=== PATIENT | male | born 1985 | race Caucasian/White ===

== ENCOUNTER 2018-08-05 06:54 | Emergency (ER) | payer BC, SELFPAY ==
[2018-07-21 16:07] VITALS: BMI 26.4
[2018-08-05 06:54] VITALS: BP 127/80; PULSE 66; RESP 14; TEMP 36.5; O2SAT 100; BMI 27.1
--- NOTE | 2018-08-05 07:00 | RAD_ITS ---
STUDY: X-RAY CHEST REASON FOR EXAM: Male, 33 years old. Chest pain TECHNIQUE: Single AP portable view of the chest. COMPARISON: None. FINDINGS: The lungs are clear and expanded. There is no demonstrated pleural abnormality. Normal size heart. Normal mediastinum and radu. Normal visualized pulmonary arteries. Normal visualized aortic arch and descending thoracic aorta. Normal visualized thoracic spine. Normal visualized ribs, clavicles, and shoulders. There is no demonstrated abnormality of the visualized soft tissue structures of the upper abdomen. RAD/Chest 1 View (Portable) IMPRESSION: Normal x-ray examination of the chest. Electronically Signed: Mike Osorio DO at 8:31 EDT Tel , Service support ,
--- NOTE | 2018-08-05 07:00 | EKG12_ITS ---
Test Reason : CP Blood Pressure : / mmHG Vent. Rate : 067 BPM Atrial Rate : 067 BPM P-R Int : 134 ms QRS Dur : 084 ms QT Int : 366 ms P-R-T Axes : 058 075 057 degrees QTc Int : 386 ms Normal sinus rhythm Normal ECG Confirmed by ESPINOZA SCOTT, JESE ([id number]), web editor WHIT WHIPPLE ([id number]) on 08/10/2018 1:50:59 PM Referred By: RIVERA Confirmed By:JESE DORAN MD
[2018-08-05 07:07] VITALS: O2SAT 100
[2018-08-05 07:08] LABS: Absolute Lymphocyte Count 2.69 X10^3/ul (0.83-4.51); Absolute Neutrophil Count 7.8 X10^3/uL (2.0-7.7); Basophil# 0.03 X10^3/uL; Basophil% 0.3 % (0-1); Eosinophil# 0.13 X10^3/uL; Eosinophils% 1.1 % (0-5); Hematocrit 46.1 % (40-54); Hemoglobin 16.3 g/dl (13.0-16.5); Lymphocyte # 2.69 X10^3/ul (4.0); Lymphocyte % 23.6 % (19-41); Mean Corp Hgb Conc 35.4 g/gl (32-36); Mean Corpuscular Hgb 31.3 pg (27.0-32.0); Mean Corpuscular Volume 88.7 fL (80-94); Mean Platelet Vol. 9.1 fl (6.2-12.0); Monocyte# 0.74 X10^3/uL; Monocyte% 6.5 % (0-10); Neutrophil % 68.2 % (47-70); POSITIVE COUNT NO; POSITIVE DIFFERENTIAL NO; POSITIVE MORPHOLOGY NO; Platelet Count 291 K/mm3 (150-450); RBC Distribution Width CV 12.6 % (11.6-14.6); RBC Distribution Width SD 40.3 fl (35.1-43.9); White Blood Count 11.4 K/mm3 (4.4-11.0)
[2018-08-05 07:10] LABS: Prothrombin Time (Protime)PT. 12.8 SECONDS (11.7-14.9)
--- NOTE | 2018-08-05 07:16 | ED.VISSUMM ---
- ER Visit Summary Date of Service: 08/05/18 Chief Complaint: Chest pain History of Present Illness: The patient is a 33 M recently seen by Dr. Nava for palpitations. He describes occasional hard thump of his heart. Today while driving to work he noted sharp spasms of pain to the left upper chest. He denies shortness of breath, lightheadedness, dizziness. He has not had recent change in caffeine intake. No known thyroid problems. Physical Examination: Vital signs unremarkable. Patient is in no acute distress and is nontoxic appearing. Head and neck examination is normal. Heart is regular rate and rhythm. Palpable pulses are noted throughout. Lungs are clear with good air movement throughout. Chest wall is nontender. Abdomen is soft and nontender. Bowel sounds are noted. Extremity examination is unremarkable with full range of motion. Neurologic examination reveals no focal deficits. Test Results: EKG is sinus at 67 with no acute ischemia. 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 CBC was a white count 11.4 with normal differential. Chemistry studies normal. Troponin is less than 0.015. Portable chest x-ray per my review is unremarkable. TSH and d-dimer are pending will be checked by oncoming physician. Emergency Department Course and Treatment: Patient has been observed on conveyor monitor. He had no further episodes of the sharp chest pain that brought him in. He was noted to have a few PACs on monitor. If the d-dimer and TSH are unremarkable patient will be discharged to follow-up with Dr. Nava as scheduled. Patient is comfortable with this plan. Treatment Plan: [] Disposition: Discharge Impression: Atypical chest pain This note was generated with [employer] dictation software. It may contain incorrect words, spelling, and punctuation that were not noted in review of the chart prior to signing ED Disposition - Plan for ED Patient: Referrals: Benny Nava MD [STAFF PHYSICIAN] -
[2018-08-05 07:19] LABS: Anion Gap 3 (5-15); BUN 13 mg/dL (7-18); BUN/Creat Ratio 15.8 RATIO (10-20); Chloride 107 mmol/L (98-107); Creatinine, Serum 0.82 mg/dL (0.70-1.30); EST Glomerular Filtration Rate 115 mL/min (>60); Est Glom Filt Rate - Afr Amer 139 mL/min (>60); Estimated Creatinine Clearance 125.12 ml/min; Glucose 76 mg/dL (74-106); Potassium 3.6 mmol/L (3.5-5.1); Sodium Level 140 mmol/L (136-145)
[2018-08-05 08:03] LABS: D-Dimer Quantitative (DVT/PE) < 0.27 FEU/ug/m (0.27-0.49)
[2018-08-05 08:07] VITALS: BP 112/71; PULSE 78; RESP 16; O2SAT 98
--- NOTE | 2018-08-05 08:50 | ED.DEP ---
ED Disposition - Plan for ED Patient: Instructions: ED Chest Pain Atypical Unkn Cause Referrals: Benny Nava MD [STAFF PHYSICIAN] -
[2018-08-05 09:18] VITALS: BP 120/78; PULSE 56; RESP 16; O2SAT 99
== END 2018-08-05 09:19 | disposition home or self-care (01) ==
LOC: ED 07:20
PROVIDERS: Emergency Provider Emergency Medicine
DX: R07.89 Other chest pain (principal); Z87.891 Personal history of nicotine dependence
CPT/HCPCS: 71045; 80048; 84443; 84484; 85025; 85379; 85610; 93005; 99283; A4216

== ENCOUNTER → 2018-08-12 14:29 | Outpatient (CLI) | payer BC, SELFPAY ==
[2018-07-21 16:07] VITALS: BMI 26.4
[2018-08-05 06:54] VITALS: BMI 27.1
--- NOTE | 2018-08-12 14:34 | ECHOD_ITS ---
Reason For Study: ARRHYTHMIA Procedure This was a 2D Doppler, Color Flow transthoracic echocardiogram. Exam performed in department. Left Ventricle Normal LV size. Left ventricular systolic function is normal. The estimated ejection fraction is 55 %. Normal diastology for age. No regional wall motion abnormalities noted. Right Ventricle Normal RV size. Normal systolic function. Atria Normal left atrium. Normal right atrium. Mitral Valve Normal mitral valve. Tricuspid Valve Normal tricuspid valve. Mild (1+) tricuspid valve insufficiency. Pulmonary artery systolic pressure is 30 mmHg. Aortic Valve Normal aortic valve. Trisinus/trileaflet aortic valve. Pulmonic Valve Normal pulmonic valve. Great Vessels Normal aortic root. The pulmonary artery is normal size. Normal inferior vena cava. Pericardium/Pleural No pericardial effusion. MMode/2D Measurements & Calculations LVIDd: 5.1 cm IVSd: 0.80 cm Ao root diam: 3.2 cm LVIDs: 3.3 cm LVPWd: 0.70 cm RVDd: 3.6 cm FS: 34.4 % LAV(MOD-bp): 46.8 ml LVAd ap4: 36.1 cm2 SV(MOD-sp4): 75.0 ml LAV(MOD-bp) Indexed: 24.5 ml/m2 EDV(MOD-sp4): 125.1 ml LAV(MOD-sp2): 44.6 ml EDV(sp4-el): 131.5 ml LAV(MOD-sp4): 44.1 ml LVAs ap4: 19.9 cm2 ESV(MOD-sp4): 50.1 ml ESV(sp4-el): 49.3 ml EF(MOD-sp4): 60.0 % EF(sp4-el): 62.5 % SV(sp4-el): 82.3 ml LA A4 area: 17.5 cm2 LA dimension(2D): 3.2 cm RA A4 area: 18.4 cm2 Time Measurements MV dec time: 0.24 sec Doppler Measurements & Calculations MV E max osiel: 94.5 cm/sec Lat Peak E' Osiel: 15.8 cm/sec Med Peak E' Osiel: 12.3 cm/sec MV A max osiel: 67.0 cm/sec E/E' lat: 6.0 E/E' med: 7.7 MV E/A: 1.4 Ao V2 max: 134.6 cm/sec LV V1 max: 124.7 cm/sec PA V2 max: 108.9 cm/sec Ao max P.2 mmHg LV V1 max P.2 mmHg TR max osiel: 252.7 cm/sec TR max P.5 mmHg Interpretation Summary Normal LV size. Left ventricular systolic function is normal. The estimated ejection fraction is 55 %. Normal diastology for age. Mild (1+) tricuspid valve insufficiency. Ordering Physician: Benny Nava Referring Physician: Benny Nava Performed By: Umm Guerin RDCS
== END ==
LOC: PSN 14:30
PROVIDERS: Referring Provider Internal Medicine Cardiovascular Disease; Visit Provider Internal Medicine Cardiovascular Disease
DX: R00.2 Palpitations (principal)
CPT/HCPCS: 93225; 93226; 93306

== ENCOUNTER → 2024-08-03 | Outpatient (CLI) | payer OTHER, SELFPAY ==
[2024-08-03 16:14] LABS: Amphetamine Urine NEGATIVE (<1000 ng/mL); Barbiturate Urine NEGATIVE (< 200 ng/mL); Benzodiazepine Urine NEGATIVE (< 200 ng/mL); Buprenorphine Urine NEGATIVE (< 200 ng/mL); Cocaine Urine NEGATIVE (< 300 ng/mL); Fentanyl, Urine NEGATIVE; Methadone Urine NEGATIVE (< 300 ng/mL); Opiates Urine NEGATIVE (< 300 ng/mL); Oxycodone, Urine NEGATIVE (< 100 ng/mL); PCP Urine NEGATIVE (< 25 ng/mL); THC Urine PRESUMPTIVE POSITIVE (< 50 ng/mL)
== END | disposition home or self-care (01) ==
PROVIDERS: Referring Provider Family Medicine; Visit Provider Family Medicine
DX: Z79.899 Other long term (current) drug therapy (principal)
CPT/HCPCS: 80307